=== PATIENT | male | born 1990 | race African-American/Black ===

== ENCOUNTER 2017-08-15 16:56 | Emergency (ER) | payer OTHER ==
[~2017-08-15] VITALS: Ht 188 cm; Wt 84.0 kg
[2017-08-15 17:08] VITALS: TEMP 36.3; Ht 188 cm; Wt 84.0 kg
[2017-08-15] MEDS ORDERED: BUPIVACAINE 0.5 % 5 MG/1 ML MPF 30ML VIAL INFIL ONE (17:45)
[2017-08-15] MEDS ORDERED: DIPHTHERIA/TETANUS/PERTUSSIS 0.5 ML SYR/VIAL IM. ONE (17:45)
[2017-08-15] MEDS ORDERED: XYLOCAINE 1%/SOD BICARB 20 ML VIAL INFIL ONE (17:45)
--- NOTE | 2017-08-15 18:08 | DIAGNOSTIC IMAGING REPORT ---
RIGHT SECOND/INDEX FINGER 4 VIEWS CLINICAL HISTORY: Right index finger pain status post trauma COMPARISON: None. DISCUSSION: There is a mildly comminuted fracture involving the tuft of the distal phalanx. There is an overlying soft tissue injury. There is no dislocation. No foreign bodies are visualized. IMPRESSION: Mildly comminuted nondisplaced fracture involving the tuft of the distal phalanx with an overlying soft tissue injury Electronically signed by: Lopez Perez M.D. 08/15/2017 6:07 PM Dictated Date/Time: 08/15/2017 6:06 PM
[2017-08-15] MEDS ORDERED: CEPHALEXIN MONOHYDRATE 250 MG CAP PO ONE (18:30)
--- NOTE | 2017-08-15 18:58 | EMERGENCY ROOM VISIT NOTE ---
ED Visit Note First contact with patient: 17:31 CHIEF COMPLAINT: Finger laceration HISTORY OF PRESENT ILLNESS: This patient is a 27-year-old male that presents to the emergency department complaining of a laceration that occurred at work today to the right index finger when it table accidentally collapsed in his finger. He complains of a throbbing pain of 6/10. He has not taken anything for pain. The patient is right-hand dominant. He denies any other injuries. REVIEW OF SYSTEMS: A 6 system review of systems was completed with positives and pertinent negatives listed in the HPI. ALLERGIES: No known drug allergies MEDICATIONS: Reviewed PMH: Otherwise healthy SOCIAL HISTORY: Smokes 2-3 cigarettes per day PHYSICAL EXAM: Vital Signs: Reviewed Nurse's notes, vital signs stable. GENERAL : 27-year-old male, in no acute distress, well developed, well nourished. RIGHT HAND: Approximately 3 cm, macerated laceration noted to the pad of the right index finger. The edges gape apart with traction. There is no active bleeding. Subungual hematoma noted. Tenderness to palpation over the distal aspect of the finger down to the PIP joint. No foreign material in the wound. It appears clean. EMERGENCY DEPARTMENT COURSE: I examined the patient. An x-ray of the finger was performed and reviewed IMPRESSION: Mildly comminuted nondisplaced fracture involving the tuft of the distal phalanx with an overlying soft tissue injury Electronically signed by: Lopez Perez M.D. 08/15/2017 6:07 PM Dictated Date/Time: 08/15/2017 6:06 PM The status of this report is Signed. Draft = Not yet reviewed or approved by Radiologist. Signed = Reviewed and approved by Radiologist. <AttendingPhy></AttendingPhy> <FamilyPhy></FamilyPhy> <PrimaryPhy></PrimaryPhy> <UnitNumber>[id number]</UnitNumber> <VisitNumber>[id number]</VisitNumber> < PatientName>JOANA WARNER</PatientName> <DateOfBirth>1990</DateOfBirth> < Location>[facility]</Location> <ServiceDate>08/15/17</ServiceDate> <MNE>ESINDI</MNE> <OrderingPhy>Lia Mullins PA-C</OrderingPhy> <OrderingPhyMNE>f rep ord dr xiong </OrderingPhyMNE> <DictatingPhyMNE>f rep dict dr xiong</DictatingPhyMNE> < CCListMNE>f rep ct mne</CCListMNE> <AdmittingPhyMNE>f pt admit dr xiong</ AdmittingPhyMNE> <AttendingPhyMNE>f pt attend dr xiong</AttendingPhyMNE> <ConsultingPhyMNE>f pt consult dr xiong</ConsultingPhyMNE> <FamilyPhyMNE>f pt fam dr xiong</FamilyPhyMNE> <OtherPhyMNE>f pt other dr xiong</OtherPhyMNE> < PrimaryPhyMNE>f pt prim care dr xiong</PrimaryPhyMNE> <ReferringPhyMNE>f pt referring dr xiong</ReferringPhyMNE> verbal consent was obtained to perform the procedure. Using sterile technique the wound was cleansed with Betadine. 4 ml of 1% buffered lidocaine with Marcaine was used to perform a digital block to anesthetize the patient. The area was sterilely draped. Once the patient was anesthetized, the wound was copiously irrigated under pressure with sterile saline. The wound was explored and there were no deep structures injured. The laceration was repaired using 7 simple interrupted 5-0 nylon sutures. Using electrocautery, the nail was punctured. The patient tolerated the procedure well. Hemostasis was achieved. The area was cleaned with sterile saline and dressed with bacitracin ointment and bandage. The patient was given a metal finger splint. He was given 1 dose of Keflex. The patient was given a tetanus booster. The patient was discharged home in good condition. DIAGNOSIS: Finger laceration DISCHARGE INSTRUCTIONS & TREATMENT: Please take the entire course of antibiotics as prescribed Please keep the metal splint in place. Please follow-up with an orthopedic doctor as there is a fracture at the end of your finger. Call tomorrow for a follow-up appointment. Keep wound clean. It is okay to gently wash the area with soapy water. Do not submerse it in water for long periods of time such as swimming, going in hot tubs or taking baths until the sutures come out. Do not allow any crusting or dried blood to accumulate on sutures. If this occurs, use a 1:1 solution of hydrogen peroxide/water on a Q-tip to clean the wound. Use an antibiotic ointment for 3-4 days, then let wound dry. Suture removal in 14 days. Return sooner for any signs of infection (increasing redness, swelling, drainage). Ice and elevate for swelling and pain. Ibuprofen 600 mg and Tylenol 1000 mg every 6 hrs for pain. It was a pleasure participating in your care This chart was completed in part utilizing [employer] Speech Voice Recognition software. Attempts were made to minimize the grammatical errors, random word insertions, pronoun errors and incomplete sentences. Any formal questions or concerns about the content, text or information contained within the body of this dictation should be directly addressed to the provider for clarification.
[2017-08-15] MEDS ORDERED: CEPH500C PO (19:01)
[2017-08-15 19:15] VITALS: BP 132/68; PULSE 72; O2SAT 99
== END 2017-08-15 17:19 | disposition home or self-care (01) ==
LOC: C.EDB 16:57 → C.EDD 17:19
DX: S61.310A Laceration without foreign body of right index finger with damage to nail, initial encounter (principal); S62.660A Nondisplaced fracture of distal phalanx of right index finger, initial encounter for closed fracture; S60.121A Contusion of right index finger with damage to nail, initial encounter; W20.8XXA Other cause of strike by thrown, projected or falling object, initial encounter; Y99.0 Civilian activity done for income or pay; F17.210 Nicotine dependence, cigarettes, uncomplicated; Z23 Encounter for immunization